=== PATIENT | female | born 1955 | race Caucasian/White ===

== ENCOUNTER → 2016-07-30 | Outpatient (CLI) | payer BC ==
[2016-07-30 14:12] LABS: Basophils # (A) 0.1 k/uL (0-0.2); Basophils % (A) 1 %; CH 32.6; Eosinophils # (A) 0.1 k/uL (0-0.7); Eosinophils % (A) 2 %; HCT 47.3 % (34.0-46.0); HDW 2.21; HGB 15.5 gm/dL (11.4-16.0); Luc # (Auto) 0.29; Luc % (Auto) 4; Lymphocytes # (A) 1.8 k/uL (1.0-4.8); Lymphocytes % (A) 24 %; MCH 32.6 pg (25.0-35.0); MCHC 32.8 g/dL (31.0-37.0); MCV 99.3 fL (80.0-100.0); Mean Platelet Volume 7.8; Monocytes # (A) 0.6 k/uL (0-1.0); Monocytes % (A) 8 %; Neutrophils # (A) 4.7 k/uL (1.3-7.7); Neutrophils % (A) 62 %; RBC 4.76 m/uL (3.80-5.40); RDW 13.1 % (11.5-15.5); WBC 7.5 k/uL (3.8-10.6); WBC (Perox) 7.89
[2016-07-30 14:21] LABS: ALT 34 U/L (9-52); AST 24 U/L (14-36); Alkaline Phosphatase 88 U/L (38-126); Anion Gap 12 mmol/L; Blood Urea Nitrogen 11 mg/dL (7-17); Calcium 9.7 mg/dL (8.4-10.2); Carbon Dioxide 27 mmol/L (22-30); Chloride 99 mmol/L (98-107); Glucose 101 mg/dL (74-99); Non-African American GFR(MDRD) >60 (>60 ml/min/1.73 sqM); Potassium 4.5 mmol/L (3.5-5.1); Sodium 138 mmol/L (137-145); Total Bilirubin 0.9 mg/dL (0.2-1.3); Total Protein 7.6 g/dL (6.3-8.2)
[2016-07-30 14:39] LABS: Creatine Kinase MB 1.5 ng/mL (0.0-2.4); Troponin I <0.012 ng/mL (0.000-0.034)
== END ==
LOC: LABWHC1 13:48
PROVIDERS: ATTEND Nurse Practitioner Adult Health
DX: R07.9 Chest pain, unspecified (principal)
CPT/HCPCS: 36415; 80053; 82553; 84484; 85025

== ENCOUNTER 2018-05-03 16:51 | Observation (INO) | payer BC ==
[2018-05-03 17:26] LABS: Basophils % (A) 0 %; Eosinophils # (A) 0.2 k/uL (0-0.7); Eosinophils % (A) 3 %; HGB 15.4 gm/dL (11.4-16.0); Lymphocytes # (A) 1.8 k/uL (1.0-4.8); Lymphocytes % (A) 26 %; MCH 32.3 pg (25.0-35.0); MCHC 32.7 g/dL (31.0-37.0); MCV 98.8 fL (80.0-100.0); Mean Platelet Volume 6.9; Monocytes # (A) 0.4 k/uL (0-1.0); Monocytes % (A) 6 %; Neutrophils # (A) 4.4 k/uL (1.3-7.7); Neutrophils % (A) 62 %; Platelet Count 253 k/uL (150-450); RBC 4.75 m/uL (3.80-5.40); RDW 13.4 % (11.5-15.5)
[2018-05-03 17:35] LABS: Creatine Kinase 62 U/L (30-135)
[2018-05-03 17:37] LABS: ALT 39 U/L (9-52); AST 35 U/L (14-36); Alkaline Phosphatase 59 U/L (38-126); Anion Gap 10 mmol/L; Blood Urea Nitrogen 17 mg/dL (7-17); Calcium 9.4 mg/dL (8.4-10.2); Carbon Dioxide 23 mmol/L (22-30); Chloride 103 mmol/L (98-107); Glucose 97 mg/dL (74-99); Magnesium 1.9 mg/dL (1.6-2.3); Sodium 136 mmol/L (137-145); Total Bilirubin 0.7 mg/dL (0.2-1.3); Total Protein 7.3 g/dL (6.3-8.2)
[2018-05-03 17:38] LABS: INR 0.9 (<1.2); Partial Thromboplastin Time 23.9 sec (22.0-30.0); Potassium 4.7 mmol/L (3.5-5.1); Prothrombin Time 9.5 sec (9.0-12.0)
[2018-05-03] MEDS ORDERED: ASPIRIN 81 MG PO STA (17:42)
[2018-05-03] MEDS ORDERED: NITROGLYCERIN SL TABS 0.4 MG TAB SUBLINGUAL PRN ×2 (17:42→18:55)
[2018-05-03 17:48] LABS: Creatine Kinase MB 0.7 ng/mL (0.0-2.4); Troponin I <0.012 ng/mL (0.000-0.034)
--- NOTE | 2018-05-03 17:56 | ED ---
General Adult HPI - General Chief complaint: Chest Pain Stated complaint: Chest Pain x4 days Time Seen by Provider: 05/03/18 17:33 Source: patient, RN notes reviewed Mode of arrival: ambulatory Limitations: no limitations - History of Present Illness Initial comments: Patient is 62-year-old female presented to the emergency room today with chief complaint of chest pain that started 3 days ago. Patient does admit that she was expressing some sharp pain left side chest wall. She states that she went to bed and woke up with some indigestion in the middle. She states that she did take Maalox and Tums which helped with the indigestion feelings. She states over the last today she's had more of a aching type pain left side of her chest. She states it's constant at this time. Admits that she's had some increased indigestion as well. She also admits to feeling short of breath. She states this is more with exertion. She is comfortable at rest. Denies any other complaints or symptoms at this time. Patient denies any recent fever, chills, back pain, abdominal pain, nausea or vomiting, numbness or tingling, dysuria or hematuria, constipation or diarrhea, headaches or visual changes, or any other complaints. - Related Data Home Medications Medication Instructions Recorded Confirmed Alendronate Sodium [Fosamax] 70 mg PO WE 05/03/18 05/03/18 Mylanta 30 ml PO ONCE PRN 05/03/18 05/03/18 Allergies Allergy/AdvReac Type Severity Reaction Status Date / Time Sulfa (Sulfonamide Allergy Rash/Hives Verified 05/03/18 17:44 Antibiotics) atorvastatin [From Lipitor] AdvReac MUSCLE PAIN Verified 05/03/18 17:44 Review of Systems ROS Statement: Those systems with pertinent positive or pertinent negative responses have been documented in the HPI. ROS Other: All systems not noted in ROS Statement are negative. Past Medical History Additional Past Medical History / Comment(s): polymyositis, osteopenia History of Any Multi-Drug Resistant Organisms: None Reported Past Surgical History: Orthopedic Surgery Additional Past Surgical History / Comment(s): B wrists Past Psychological History: No Psychological Hx Reported Smoking Status: Never smoker Past Alcohol Use History: Occasional Past Drug Use History: None Reported General Exam - General Exam Comments Initial Comments: General: The patient is awake and alert, in no distress, and does not appear acutely ill. Eye: There is normal conjunctiva bilaterally. No signs of icterus. Ears, nose, mouth and throat: There are moist mucous membranes and no oral lesions. Neck: The neck is supple, there is no tenderness or JVD. Cardiovascular: There is a regular rate and rhythm. No murmur, rub or gallop is appreciated. Respiratory: Lungs are clear to auscultation, respirations are non-labored, breath sounds are equal. No wheezes, stridor, rales, or rhonchi. Gastrointestinal: Soft, non-distended, non-tender abdomen without masses or organomegaly noted. There is no rebound or guarding present. No CVA tenderness. Musculoskeletal: Normal ROM, no tenderness. Strength 5/5. Sensation intact. Pulses equal bilaterally 2+. Neurological: A&O x 3. CN II-XII intact, There are no obvious motor or sensory deficits. Coordination appears grossly intact. Speech is normal. Skin: Skin is warm and dry and no rashes or lesions are noted. Psychiatric: Cooperative, appropriate mood & affect, normal judgment. Limitations: no limitations Course Vital Signs 05/03/18 16:57 Temperature 98.2 F Pulse Rate 104 H Respiratory 18 Rate Blood Pressure 193/109 O2 Sat by Pulse 96 Oximetry EKG Findings - EKG Comments: EKG Findings:: EKG performed at 1709: Shows sinus rhythm at 91 bpm. Occasional PVC. LA interval 152. QRS 74. QT/QTC 364/447. No acute ST changes. No old EKG to compare. Medical Decision Making - Medical Decision Making patient reexamined she shows no signs of distress is resting comfortable. Currently rates her pain as 2/10. Patient currently enzymes are negative. D- dimer negative. EKG shows no acute ST changes. Patient will be admitted for serial cardiac enzymes and consult cardiology. - Lab Data Result diagrams: 05/03/18 17:10 05/03/18 17:10 Lab Results 05/03/18 05/03/18 05/03/18 Range/Units 17:10 17:10 17:10 WBC 7.0 (3.8-10.6) k/uL RBC 4.75 (3.80-5.40) m/uL Hgb 15.4 (11.4-16.0) gm/dL Hct 47.0 H (34.0-46.0) % MCV 98.8 (80.0-100.0) fL MCH 32.3 (25.0-35.0) pg MCHC 32.7 (31.0-37.0) g/dL RDW 13.4 (11.5-15.5) % Plt Count 253 (150-450) k/uL Neutrophils % 62 % Lymphocytes % 26 % Monocytes % 6 % Eosinophils % 3 % Basophils % 0 % Neutrophils # 4.4 (1.3-7.7) k/uL Lymphocytes # 1.8 (1.0-4.8) k/uL Monocytes # 0.4 (0-1.0) k/uL Eosinophils # 0.2 (0-0.7) k/uL Basophils # 0.0 (0-0.2) k/uL PT (9.0-12.0) sec INR (<1.2) APTT (22.0-30.0) sec D-Dimer (<0.60) mg/L FEU Sodium 136 L (137-145) mmol/L Potassium 4.7 (3.5-5.1) mmol/L Chloride 103 (98-107) mmol/L Carbon Dioxide 23 (22-30) mmol/L Anion Gap 10 mmol/L BUN 17 (7-17) mg/dL Creatinine 0.67 (0.52-1.04) mg/dL Est GFR (CKD-EPI)AfAm >90 (>60 ml/min/1.73 sqM) Est GFR (CKD-EPI)NonAf >90 (>60 ml/min/1.73 sqM) Glucose 97 (74-99) mg/dL Calcium 9.4 (8.4-10.2) mg/dL Magnesium 1.9 (1.6-2.3) mg/dL Total Bilirubin 0.7 (0.2-1.3) mg/dL AST 35 (14-36) U/L ALT 39 (9-52) U/L Alkaline Phosphatase 59 (38-126) U/L Total Creatine Kinase 62 (30-135) U/L CK-MB (CK-2) 0.7 (0.0-2.4) ng/mL CK-MB (CK-2) Rel Index 1.1 Troponin I <0.012 (0.000-0.034) ng/mL Total Protein 7.3 (6.3-8.2) g/dL Albumin 4.0 (3.5-5.0) g/dL 05/03/18 05/03/18 Range/Units 17:10 17:10 WBC (3.8-10.6) k/uL RBC (3.80-5.40) m/uL Hgb (11.4-16.0) gm/dL Hct (34.0-46.0) % MCV (80.0-100.0) fL MCH (25.0-35.0) pg MCHC (31.0-37.0) g/dL RDW (11.5-15.5) % Plt Count (150-450) k/uL Neutrophils % % Lymphocytes % % Monocytes % % Eosinophils % % Basophils % % Neutrophils # (1.3-7.7) k/uL Lymphocytes # (1.0-4.8) k/uL Monocytes # (0-1.0) k/uL Eosinophils # (0-0.7) k/uL Basophils # (0-0.2) k/uL PT 9.5 (9.0-12.0) sec INR 0.9 (<1.2) APTT 23.9 (22.0-30.0) sec D-Dimer 0.38 (<0.60) mg/L FEU Sodium (137-145) mmol/L Potassium (3.5-5.1) mmol/L Chloride (98-107) mmol/L Carbon Dioxide (22-30) mmol/L Anion Gap mmol/L BUN (7-17) mg/dL Creatinine (0.52-1.04) mg/dL Est GFR (CKD-EPI)AfAm (>60 ml/min/1.73 sqM) Est GFR (CKD-EPI)NonAf (>60 ml/min/1.73 sqM) Glucose (74-99) mg/dL Calcium (8.4-10.2) mg/dL Magnesium (1.6-2.3) mg/dL Total Bilirubin (0.2-1.3) mg/dL AST (14-36) U/L ALT (9-52) U/L Alkaline Phosphatase (38-126) U/L Total Creatine Kinase (30-135) U/L CK-MB (CK-2) (0.0-2.4) ng/mL CK-MB (CK-2) Rel Index Troponin I (0.000-0.034) ng/mL Total Protein (6.3-8.2) g/dL Albumin (3.5-5.0) g/dL Disposition Clinical Impression: Chest pain Disposition: ADMITTED IP TO THIS HOSP Condition: Good Instructions: Chest Pain (ED) Is patient prescribed a controlled substance at d/c from ED?: No Referrals: Elva Bernard MD [Primary Care Provider] - 1-2 days Time of Disposition: 18:55
--- NOTE | 2018-05-03 18:33 | XR ---
EXAMINATION TYPE: XR chest 2V DATE OF EXAM: 05/03/2018 COMPARISON: NONE HISTORY: Chest pain TECHNIQUE: Frontal and lateral views of the chest are obtained. FINDINGS: Heart and mediastinum are normal. Lungs are clear. Diaphragm is normal. Bony thorax appear s normal. IMPRESSION: Normal chest.
[2018-05-03] MEDS ORDERED: SODIUM CHLORIDE 0.9% 1,000 ML IV ONE (18:55)
[2018-05-03] MEDS ORDERED: LABETALOL SYRINGE 5 MG/ML IVP STA (19:08)
[2018-05-03] MEDS ORDERED: HEPARIN SODIUM,PORCINE 5,000 UNIT/ML 1 ML VIAL IV ONE (19:34)
[2018-05-03] MEDS ORDERED: HEPARIN SOD,PORK IN 0.45% NACL 25,000 UNIT in 0.45% NACL 1 250ML.BAG IV SCH (19:45)
[2018-05-03] MEDS ORDERED: MYLANTA PO PRN (22:15)
[2018-05-03 22:24] VITALS: BMI 32.9
[2018-05-03 23:50] LABS: Creatine Kinase 49 U/L (30-135)
[2018-05-04 00:03] LABS: Creatine Kinase MB 0.6 ng/mL (0.0-2.4); Troponin I <0.012 ng/mL (0.000-0.034)
[2018-05-04 00:09] VITALS: RESP 16
[2018-05-04] MEDS ORDERED: ACETAMINOPHEN TAB 500 MG TAB PO PRN (00:25)
[2018-05-04] MEDS ORDERED: ALPRAZolam 0.25 MG TAB PO PRN (00:25)
[2018-05-04] MEDS ORDERED: TEMAZEPAM 15 MG CAP PO PRN (00:25)
--- NOTE | 2018-05-04 06:12 | HP ---
HISTORY AND PHYSICAL DATE OF SERVICE: 05/03/2018 CHIEF COMPLAINT: Chest pain. HISTORY OF PRESENT ILLNESS: This 62-year-old woman with a past medical history of multiple medical problems including history of polymyositis, osteopenia, history of DJD being followed by Dr. Elva Bernard in the outpatient setting was complaining of chest pain. The pain was felt about 3 days ago which was sharp character on the left side, but today it is more of persistent pain and the patient did not get relief from taking Maalox and patient came to [facility] and admitted for further evaluation. Pain is also radiating to the left shoulder. The troponins are negative so far. The chest x-ray showed no acute abnormality. There is no history of fever or rigors. No history of headache, loss of consciousness, seizures. The mother had CABG and patient had stress test [place] [address] Gold. PAST MEDICAL HISTORY: Polymyositis, osteopenia. MEDICATIONS: Home medications are: 1. Mylanta 30 mL p.r.n. 2. Fosamax 70 mg Tuesday. ALLERGIES: SULFA, LIPITOR. FAMILY HISTORY: History of myocardial function, valve replacement. SOCIAL HISTORY: No history of smoking. No history of alcohol intake. 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 REVIEW OF SYSTEMS: ENT: No diminished hearing or diminished vision. CARDIOVASCULAR SYSTEM: As mentioned earlier. RESPIRATORY SYSTEM: As mentioned earlier. GI: No nausea. : No dysuria. NERVOUS SYSTEM: No numbness or weakness. ALLERGY/IMMUNOLOGY: No history of asthma. MUSCULOSKELETAL: As mentioned earlier. HEMATOLOGY/ONCOLOGY: No history of anemia. ENDOCRINE: No history of diabetes. CONSTITUTIONAL: As mentioned earlier. DERMATOLOGY: Negative. RHEUMATOLOGY: Negative. PSYCHIATRY: As mentioned earlier. PHYSICAL EXAM: Patient is alert and oriented x3. Pulse is 87, blood pressure 174/79, respiration 18, temperature is 97.8, pulse ox 98% on room air. HEENT: Conjunctivae normal. NECK: No jugular venous distention. CARDIOVASCULAR: S1, S2, muffled. RESPIRATORY: Breath sounds diminished at the bases. No rhonchi, no crackles. ABDOMEN: Soft, nontender. No mass palpable. LEGS: No edema, no swelling. NERVOUS SYSTEM: Higher function as mentioned earlier. Moves all 4 limbs. No focal deficits. LYMPHATICS: No lymphadenopathy of the neck, axillae or groin. SKIN: No ulcer, rash or bleeding. LABS: CBC within normal limits. Sodium 136. ASSESSMENT: 1. Chest pain, possible unstable angina, possibly musculoskeletal. 2. Hyponatremia, mild. 3. History of polymyositis. 4. History of osteopenia. 5. History of degenerative joint disease. RECOMMENDATIONS AND DISCUSSION: In this 62-year-old woman who presented with multiple medical problems, will monitor the patient closely. Continue the current medications, continue symptomatic treatment. Continue the antiplatelet and unstable angina protocol. Cardiology consult, rule out myocardial infarction. Prognosis guarded because of the multiple complex medical issues. Further recommendations to follow. A copy of dictation forwarded to Dr. Elva Bernard who is the primary physician. We will also check a lipid panel also. MMODL / IJN: [id number] /
[2018-05-04 06:21] LABS: Cholesterol 219 mg/dL (<200); HDL Cholesterol 53 mg/dL (40-60); LDL Cholesterol,Calculated 139 mg/dL (0-99); Triglycerides 133 mg/dL (<150)
[2018-05-04 06:38] LABS: Creatine Kinase 51 U/L (30-135)
[2018-05-04 06:51] LABS: Creatine Kinase MB 0.6 ng/mL (0.0-2.4); Troponin I <0.012 ng/mL (0.000-0.034)
[2018-05-04 07:00] LABS: Appearance,Urine Clear (Clear); Bilirubin,Urine Negative (Negative); Blood,Urine Negative (Negative); Color,Urine Yellow; Glucose,Urine (UA) Negative (Negative); Ketones,Urine Negative (Negative); Leukocyte Esterase,Urine Moderate (Negative); Mucus,Urine Occasional /hpf; Nitrite,Urine Negative (Negative); Protein,Urine Negative (Negative); RBC,Urine 2 /hpf (0-5); Specific Gravity,Urine 1.023 (1.001-1.035); Squamous Epithelial Cell,Urine 2 /hpf (0-4); Urobilinogen,Urine <2.0 mg/dL (<2.0); WBC,Urine 24 /hpf (0-5)
[2018-05-04] MEDS ORDERED: PANTOPRAZOLE 40 MG TABLET PO SCH (07:30)
[2018-05-04] MEDS ORDERED: ASPIRIN 325 MG TAB PO SCH (09:00)
[2018-05-04] MEDS ORDERED: LOSARTAN 25 MG TAB PO SCH (10:45)
--- NOTE | 2018-05-04 10:46 | P.CRDCN ---
History of Present Illness History of present illness: This is a pleasant 62-year-old female past medical history significant for dyslipidemia. She denies history of coronary artery disease, hypertension or diabetes mellitus. She states her father had a valve replacement surgery her mother had bypass surgery and her sister who is eager intermittent in her recently had a myocardial infarction. She has seen Dr. Gold in the past and undergone stress testing just due to her family history many years which was normal per the patient. No office records were found. We have been asked to see her in consultation for symptoms of chest discomfort. She states she has been feeling a vague jabbing sensation in the left precordial region that started over the weekend. Then she woke up Tuesday morning with an intense feeling of heart burn in the mid-sternal region. She took Mylanta and her burning initially went away, however the symptoms returned throughout the day while she was working. Then yesterday she felt what she describes as an ache in the left precordial region for most of the day while at rest. The discomfort radiated to her left shoulder, down her left arm and into the left neck. She denies shortness of breath, dizziness or palpitations. Currently chest pain free. No specific aggravating or alleviating factors. Blood pressure on arrival to ED was 193/107 for which she was given IV labetolol. She denies hypertension in the past. EKG reveals sinus mechanism. Chest x-ray is negative for an acute cardiopulmonary process. Laboratory data reviewed, cardiac enzymes negative 3, LDL 139, HDL 53, WBC 7, hemoglobin 15.4, platelets 253, d-dimer 0.3, sodium 136, potassium 4.7, magnesium 1.9, creatinine 0.67. She takes no daily cardiac medications. At the time of my exam: CONSTITUTIONAL: Denies fever. Denies chills. EYES: Denies blurred vision. Denies vision changes. Denies eye pain. EARS, NOSE, MOUTH & THROAT: Denies headache. Denies sore throat. Denies ear pain. CARDIOVASCULAR: Denies chest pain. Denies shortness of breath. Denies orthopnea. Denies PND. Denies palpitations. RESPIRATORY: Denies cough. GASTROINTESTINAL: Denies abdominal pain. Denies diarrhea. Denies constipation. Denies nausea. Denies vomiting. MUSCULOSKELETAL: Denies myalgias. INTEGUMENTARY: Denies pruitis. Denies rash. NEUROLOGIC: Denies numbness. Denies tingling. Denies weakness. PSYCHIATRIC: Denies anxiety. Denies depression. ENDOCRINE: Denies fatigue. Denies weight change. Denies polydipsia. Denies polyurina. GENITOURINARY: Denies burning, hematuria or urgency with micturation. HEMATOLOGIC: Denies history of anemia. Denies bleeding. Blood pressure 147/84 heart rate 85 afebrile maintaining oxygen saturation on room air GENERAL: This is a 62-year-old female in no apparent distress at the time of my examination. HEENT: Head is atraumatic, normocephalic. Pupils are equal, round. Sclerae anicteric. Conjunctivae are clear. Mucous membranes of the mouth are moist. Neck is supple. There is no jugular venous distention. No carotid bruit is heard. LUNGS: Clear to auscultation no wheezes, rales or rhonchi. No chest wall tenderness is noted on palpation or with deep breathing. HEART: Regular rate and rhythm without murmurs, rubs or gallops. S1 and S2 heard. ABDOMEN: Soft, nontender. Bowel sounds are heard. No organomegaly noted. EXTREMITIES: No evidence of peripheral edema and no calf tenderness noted. VASCULAR: Radial and dorsalis pedis pulses palpated, no evidence of clubbing. NEUROLOGIC: Patient is awake, alert and oriented x3. ASSESSMENT Chest pain, atypical. An acute coronary event has been ruled out with no EKG evidence of ischemia and negative cardiac enzymes. Hypertension, new onset Dyslipidemia, has attempted atorvastatin the past but caused muscle aches so she stopped taking it. Obesity, BMI 32 Significant family history of premature coronary artery disease with father, mother and sister. PLAN An acute coronary event has been ruled out. Obtain 2-D echocardiogram and Doppler study to assess cardiac structure and function. Perform stress echocardiogram to assess for stress-induced cardiac ischemia. Patient is agreeable to try rosuvastatin 20 mg daily. With the understanding that if it causes similar muscle aches that she can discuss other options with Dr. Kaplan as an outpatient. Initiate on losartan 12.5 mg daily. If stress test is normal she is stable from a cardiac perspective. Lifestyle modifications recommended for weight loss and exercise. Thank you kindly for this consultation. Nurse Practitioner note has been reviewed, I agree with a documented findings and plan of care. Patient was seen and examined. Past Medical History Additional Past Medical History / Comment(s): polymyositis, osteopenia History of Any Multi-Drug Resistant Organisms: None Reported Past Surgical History: Orthopedic Surgery Additional Past Surgical History / Comment(s): BL wrists Past Anesthesia/Blood Transfusion Reactions: No Reported Reaction Past Psychological History: No Psychological Hx Reported Smoking Status: Never smoker Past Alcohol Use History: Occasional Past Drug Use History: None Reported - Past Family History Father Additional Family Medical History / Comment(s): Valve replacement Mother Additional Family Medical History / Comment(s): Triple bypass Sister(s) Family Medical History: Myocardial Infarction ([place]) Additional Family Medical History / Comment(s): [place] caused by spasms Medications and Allergies Home Medications Medication Instructions Recorded Confirmed Type Alendronate Sodium [Fosamax] 70 mg PO WE 05/03/18 05/03/18 History Mylanta 30 ml PO ONCE PRN 05/03/18 05/03/18 History Allergies Allergy/AdvReac Type Severity Reaction Status Date / Time Sulfa (Sulfonamide Allergy Rash/Hives Verified 05/03/18 17:44 Antibiotics) atorvastatin [From Lipitor] AdvReac MUSCLE PAIN Verified 05/03/18 17:44 Physical Exam Vitals: Vital Signs Temp Pulse Pulse Resp BP BP Pulse Ox 05/04/18 04:00 97.7 F 90 16 147/91 98 05/04/18 00:00 98.3 F 96 16 123/63 96 05/03/18 22:19 97.8 F 87 18 174/79 98 05/03/18 22:10 96 16 05/03/18 21:28 88 18 155/76 95 05/03/18 19:48 84 18 167/88 97 05/03/18 19:07 96 18 170/107 94 L 05/03/18 18:59 103 H 18 192/100 100 05/03/18 16:57 98.2 F 104 H 18 193/109 96 Intake and Output 05/03/18 05/04/18 05/04/18 22:59 06:59 14:59 Intake Total 76.688 Balance 76.688 Intake: Intake, IV Titration 76.688 Amount Heparin Sod,Pork in 0.45% 76.688 NaCl 25,000 unit In 0.45 % NaCl 1 250ml.bag @ 12 UNITS/KG/HR 9.79 mls/hr IV .Q24H [facility] Rx#: [id number] Other: # Voids 2 Weight 81.647 kg 81.647 kg Results 05/03/18 17:10 05/03/18 17:10 Cardiac Enzymes 05/03/18 05/03/18 05/03/18 Range/Units 17:10 17:10 23:11 AST 35 (14-36) U/L CK-MB (CK-2) 0.7 0.6 (0.0-2.4) ng/mL Troponin I <0.012 <0.012 (0.000-0.034) ng/mL 05/04/18 Range/Units 05:27 AST (14-36) U/L CK-MB (CK-2) 0.6 (0.0-2.4) ng/mL Troponin I <0.012 (0.000-0.034) ng/mL Coagulation 05/03/18 05/04/18 Range/Units 17:10 02:31 PT 9.5 (9.0-12.0) sec APTT 23.9 43.7 H (22.0-30.0) sec Lipids 05/04/18 Range/Units 05:27 Triglycerides 133 (<150) mg/dL Cholesterol 219 H (<200) mg/dL HDL Cholesterol 53 (40-60) mg/dL CBC 05/03/18 Range/Units 17:10 WBC 7.0 (3.8-10.6) k/uL RBC 4.75 (3.80-5.40) m/uL Hgb 15.4 (11.4-16.0) gm/dL Hct 47.0 H (34.0-46.0) % Plt Count 253 (150-450) k/uL Comprehensive Metabolic Panel 05/03/18 Range/Units 17:10 Sodium 136 L (137-145) mmol/L Potassium 4.7 (3.5-5.1) mmol/L Chloride 103 (98-107) mmol/L Carbon Dioxide 23 (22-30) mmol/L BUN 17 (7-17) mg/dL Creatinine 0.67 (0.52-1.04) mg/dL Glucose 97 (74-99) mg/dL Calcium 9.4 (8.4-10.2) mg/dL AST 35 (14-36) U/L ALT 39 (9-52) U/L Alkaline Phosphatase 59 (38-126) U/L Total Protein 7.3 (6.3-8.2) g/dL Albumin 4.0 (3.5-5.0) g/dL Current Medications Generic Name Dose Route Start Last Admin Trade Name Freq PRN Reason Stop Dose Admin Acetaminophen 500 mg 05/04/18 00:25 05/04/18 01:09 Tylenol Tab PO 500 mg Q6HR PRN Administration Fever and/ or Pain Alprazolam 0.25 mg 05/04/18 00:25 Xanax PO TID PRN Anxiety Aspirin 325 mg 05/04/18 09:00 Aspirin PO DAILY TORSTEN Sodium Chloride 1,000 mls @ 75 mls/hr 05/03/18 18:55 05/03/18 23:07 Saline 0.9% IV 05/04/18 08:14 75 mls/hr .[id number] ONE Administration Heparin Sodium/Sodium Chloride 250 mls @ 9.79 mls/hr 05/03/18 19:45 05/04/18 04:08 25,000 unit/ Sodium Chloride IV 14 units/kg/hr .Q24H TORSTEN 11.43 mls/hr Titration Protocol 12 UNITS/KG/HR Nitroglycerin 0.4 mg 05/03/18 17:42 05/03/18 19:00 Nitrostat SUBLINGUAL 0.4 mg Q10M PRN Administration Chest Pain Nitroglycerin 0.4 mg 05/03/18 18:55 Nitrostat SUBLINGUAL Q5M PRN Chest Pain Mylanta 30 Ml 30 ml 05/03/18 22:15 PO ONCE PRN Heartburn Pantoprazole Sodium 40 mg 05/04/18 07:30 Protonix PO AC-BRKFST TORSTEN Temazepam 15 mg 05/04/18 00:25 Restoril PO HS PRN Insomnia Intake and Output 05/03/18 05/04/18 05/04/18 22:59 06:59 14:59 Intake Total 76.688 Balance 76.688 Intake: Intake, IV Titration 76.688 Amount Heparin Sod,Pork in 0.45% 76.688 NaCl 25,000 unit In 0.45 % NaCl 1 250ml.bag @ 12 UNITS/KG/HR 9.79 mls/hr IV .Q24H [facility] Rx#: [id number] Other: # Voids 2 Weight 81.647 kg 81.647 kg 05/03/18 17:10 05/03/18 17:10
[2018-05-04 12:15] VITALS: BP 142/82; PULSE 96; TEMP 97.7
--- NOTE | 2018-05-04 14:11 | ECHOF ---
Referral Reason:cp MEASUREMENTS -------- HEIGHT: 157.5 cm WEIGHT: 81.6 kg BP: 147/91 RVIDd: 2.6 cm (< 3.3) IVSd: 1.5 cm (0.6 - 1.1) LVIDd: 2.8 cm (3.9 - 5.3) LVPWd: 1.6 cm (0.6 - 1.1) IVSs: 1.9 cm LVIDs: 1.4 cm LVPWs: 2.0 cm Ao Diam: 2.6 cm (2.0 - 3.7) AV Cusp: 1.8 cm (1.5 - 2.6) LA Diam: 3.7 cm (2.7 - 3.8) MV E Gage: 1.17 m/s MV DecT: 181 ms MV A Gage: 1.18 m/s MV E/A Ratio: 1.00 RAP: 5.00 mmHg RVSP: 16.77 mmHg FINDINGS -------- Sinus rhythm. This was a technically difficult study with suboptimal views. The left ventricular size is normal. There is moderate concentric left ventricular hypertrophy. O verall left ventricular systolic function is normal with, an EF between 55 - 60 %. The right ventricle is normal in size and function. The left atrial size is normal. The right atrium is normal in size. Lumason used The aortic valve is trileaflet, and appears structurally normal. No aortic stenosis or regurgitation. The mitral valve leaflets are mildly thickened. Mild mitral regurgitation is present. Mild tricuspid regurgitation present. The right ventricular systolic pressure, as measured by Doppl er, is 16.77mmHg. Pulmonic valve appears structurally normal. The aortic root size is normal. IVC Not well visulized. The pericardium is normal. CONCLUSIONS -------- 1. Sinus rhythm. 2. This was a technically difficult study with suboptimal views. 3. The left ventricular size is normal. 4. There is moderate concentric left ventricular hypertrophy. 5. Overall left ventricular systolic function is normal with, an EF between 55 - 60 %. 6. The right ventricle is normal in size and function. 7. The left atrial size is normal. 8. The right atrium is normal in size. 9. Lumason used 10. The aortic valve is trileaflet, and appears structurally normal. No aortic stenosis or regurgitat ion. 11. The mitral valve leaflets are mildly thickened. 12. Mild mitral regurgitation is present. 13. Mild tricuspid regurgitation present. 14. The right ventricular systolic pressure, as measured by Doppler, is 16.77mmHg. 15. Pulmonic valve appears structurally normal. 16. The aortic root size is normal. 17. IVC Not well visulized. 18. The pericardium is normal. TRANSMITTER ENGINEER: Marta Watson RDCS
--- NOTE | 2018-05-05 07:17 | DS ---
DISCHARGE SUMMARY DATE OF SERVICE: 05/04/2018 FINAL DIAGNOSES: 1. Chest pain, myocardial infarction ruled out. 2. Musculoskeletal pain. 3. Hyponatremia, mild. 4. History of polymyositis. 5. History osteoporosis. 6. History of degenerative joint disease. DISCHARGE DISPOSITION: The patient will be discharged in a stable condition with guarded prognosis. HISTORY OF PRESENT ILLNESS: This is a 62-year-old woman with a past medical history of multiple medical problems, admitted with chest pain, myocardial infarction ruled out. Cardiology saw the patient and recommended outpatient followup. A 2D echo with Doppler was done which showed ejection fraction of 50%-60%. The patient follows with Dr. Elva Bernard in the outpatient setting. On exam, vitals are stable. CARDIOVASCULAR SYSTEM: S1, S2. ABDOMEN: Soft. NERVOUS SYSTEM: No focal deficits. The patient had a UTI from the labs and the patient also had cholesterol elevated up to 219. A stress test was done and the patient will be discharged home with stress is negative. Official reports are not available at this time. DISCHARGE ADVICE AND MEDICATIONS: Diet is cardiac diet. Activity limited until followup. Follow up with Dr. Elva Bernard in 2-3 days. Follow up with Dr. Kaplan in 2 weeks. Medications to be as mentioned earlier. 1. Fosamax 70 mg Tuesday. 2. Mylanta 30 mg one p.r.n. 3. Ceftin 500 mg b.i.d. for 3 days. 4. Cozaar 12.5 mg daily. Cardiology recommended Crestor 20 mg daily. Patient will check diet and then decide on that. The lipid panel should be closely followed in the outpatient setting. As mentioned, her cholesterol is 219 and LDL is 139. MMODL / IJN: [id number] /
--- NOTE | 2018-05-05 10:35 | ECHOS ---
STRESS ECHOCARDIOGRAM INDICATIONS: Chest pain. MEDICATIONS: Fosamax. BASELINE HEART RATE: 91 BASELINE BLOOD PRESSURE: 127/57 MAXIMUM HEART RATE: 153 MAXIMUM BLOOD PRESSURE: 146/71 85% MPHR: 135 100% MPHR: 159 METS: 7.1 MAXIMUM STAGE REACHED: 3 TOTAL EXERCISE TIME: 6:15 CLINICAL INFORMATION: Patient was exercised for a total period of 6 minutes, peak heart rate of 153 was achieved. Maximum blood pressure of 146/71 mmHg was noted. Resting EKG shows normal sinus rhythm with normal NM interval and QRS duration and normal ST-T waves. No ST- segment depression suggestive of ischemia was noted. Patient did not complain of any chest pain during the test. The baseline echocardiographic images reveal normal left ventricular chamber size with normal left ventricular systolic function. In the immediate postexercise period, normal increase in the wall thickness and contractility was noted. FINAL IMPRESSION: 1. This stress echocardiographic study is negative for stress-induced ischemia. 2. EKG portion of the stress test is not suggestive of ischemia. MMODL / IJN: [id number] /
--- NOTE | 2018-05-12 06:01 | CDI ---
Date: 05/12/18 CDS/Machine Stone Polisher Name: Bety Smith Phone: If any questions, call Kaylah Case Call Worker at [phone] Patient Name: Faustina Bates Admit Date: 05/03/18 Discharge Date: 05/04/18 ATTENTION: The [facility] Coding Staff appreciate your assistance in clarifying documentation. Please respond to the clarification below the line at the bottom and electronically sign. The [facility] Coding staff will review the response and follow-up if needed. Please note: Queries are made part of the Legal Health Record. If you have any questions, please contact the Call Worker. Dear Dr. Richard, Please provide clarification for the diagnosis of "History of Osteoporosis". All other documentation indicates Osteopenia. Please clarify. Thank you for your kind consideration. Osteopenia MTDD
== END 2018-05-04 15:19 | disposition home or self-care (01) ==
LOC: EC 16:51 → 1SOBS 18:39
PROVIDERS: ADMIT Internal Medicine; ATTEND Internal Medicine
DX: R07.2 Precordial pain (principal); R07.89 Other chest pain; R12 Heartburn; E87.1 Hypo-osmolality and hyponatremia; I10 Essential (primary) hypertension; R06.02 Shortness of breath; M79.18 Myalgia, other site; N39.0 Urinary tract infection, site not specified; M33.20 Polymyositis, organ involvement unspecified; M81.0 Age-related osteoporosis without current pathological fracture; M19.90 Unspecified osteoarthritis, unspecified site; M85.80 Other specified disorders of bone density and structure, unspecified site; E78.5 Hyperlipidemia, unspecified; Z82.49 Family history of ischemic heart disease and other diseases of the circulatory system; E66.9 Obesity, unspecified; Z68.32 Body mass index [BMI] 32.0-32.9, adult; Z88.2 Allergy status to sulfonamides; Z88.8 Allergy status to other drugs, medicaments and biological substances; Z79.83 Long term (current) use of bisphosphonates; Z79.899 Other long term (current) drug therapy
CPT/HCPCS: 96366 ×3; 96367; 96376; 96365; 96375; 99285; 36415; 93005; 93306; 93351; 85379; 80061; 80053; 82550 ×2; 82553 ×2; 83735; 84484 ×2; 85025; 85610; 85730 ×2; 81001; 71046; G0378 ×2; J1644 ×2; J0696; Q9950

== ENCOUNTER 2020-02-24 17:32 | Observation (INO) | payer BC ==
[2020-02-24] MEDS ORDERED: SODIUM CHLORIDE 0.9% 500 ML 500 ML IV ONE (17:56)
--- NOTE | 2020-02-24 17:58 | ED ---
General Adult HPI - General Chief complaint: Chest Pain Stated complaint: Chest pain Time Seen by Provider: 02/24/20 17:38 Source: patient, RN notes reviewed, old records reviewed Mode of arrival: wheelchair Limitations: no limitations - History of Present Illness Initial comments: [id number] presenting for evaluation of chest pain. Patient states that she woke with chest pain this morning, left-sided, nonradiating chest pain. Patient denies sharp stabbing pain. She states that yesterday evening she had an episode of dizziness which resolved without treatment. Prior to arrival she had an episode of nausea and vomiting. She has had intermittent chest pain throughout the day today. No diaphoresis. She has no known history of coronary artery disease. She has a history of hypertension. - Related Data Home Medications Medication Instructions Recorded Confirmed Alendronate Sodium [Fosamax] 70 mg PO WE 05/03/18 02/24/20 Aspirin EC [Ecotrin Low Dose] 81 mg PO HS 02/24/20 02/24/20 Cyanocobalamin (Vitamin B-12) 1,000 mcg PO DAILY 02/24/20 02/24/20 [Vitamin B-12] Metoprolol Succinate (ER) [Toprol 50 mg PO HS 02/24/20 02/24/20 Xl] Multivitamins, Thera Liquid 5 ml PO DAILY 02/24/20 02/24/20 [Theragran Liquid (formulary)] Progesterone, Micronized 200 mg PO HS 02/24/20 02/24/20 [Progesterone] Vitamin C/Zinc Odt Tab 1 tab SL DAILY 02/24/20 02/24/20 acetaZOLAMIDE [Diamox] 250 mg PO DAILY 02/24/20 02/24/20 Allergies Allergy/AdvReac Type Severity Reaction Status Date / Time Sulfa (Sulfonamide Allergy Rash/Hives Verified 02/24/20 18:31 Antibiotics) atorvastatin [From Lipitor] AdvReac MUSCLE PAIN Verified 02/24/20 18:31 Review of Systems ROS Statement: Those systems with pertinent positive or pertinent negative responses have been documented in the HPI. ROS Other: All systems not noted in ROS Statement are negative. Past Medical History Past Medical History: Hypertension Additional Past Medical History / Comment(s): polymyositis, osteopenia History of Any Multi-Drug Resistant Organisms: None Reported Past Surgical History: Orthopedic Surgery Additional Past Surgical History / Comment(s): BL wrists Past Anesthesia/Blood Transfusion Reactions: No Reported Reaction Past Psychological History: No Psychological Hx Reported Smoking Status: Never smoker Past Alcohol Use History: Occasional Past Drug Use History: None Reported - Past Family History Father Additional Family Medical History / Comment(s): Valve replacement Mother Additional Family Medical History / Comment(s): Triple bypass Sister(s) Family Medical History: Myocardial Infarction ([place]) Additional Family Medical History / Comment(s): [place] caused by spasms General Exam Limitations: no limitations General appearance: alert, in no apparent distress Head exam: Present: atraumatic, normocephalic Eye exam: Present: normal appearance, PERRL ENT exam: Present: normal exam Neck exam: Present: normal inspection. Absent: tenderness, meningismus Respiratory exam: Present: normal lung sounds bilaterally. Absent: respiratory distress, wheezes Cardiovascular Exam: Present: regular rate, normal rhythm GI/Abdominal exam: Present: soft. Absent: distended, tenderness, guarding, rebound Extremities exam: Present: normal inspection, normal capillary refill. Absent: pedal edema, calf tenderness Neurological exam: Present: alert, oriented X3, CN II-XII intact. Absent: motor sensory deficit Psychiatric exam: Present: normal affect, normal mood Skin exam: Present: warm, dry, intact. Absent: cyanosis, diaphoretic Course Vital Signs 02/24/20 02/24/20 02/24/20 17:33 17:45 18:31 Temperature 98.3 F Pulse Rate 90 99 Pulse Rate [ 98 Material Chaser ] Respiratory 18 20 Rate Blood Pressure 173/101 159/94 O2 Sat by Pulse 97 96 Oximetry EKG Findings - EKG Comments: EKG Findings:: EKG at 1743, normal sinus rhythm, rate of 86, KY interval 154, QRS duration 72, QTC 442, no ST segment elevation. repeat EKG, 1820 normal sinus rhythm, rate of 96, KY interval 154 QRS duration 72 and a QTC [address] segment elevation. Medical Decision Making - Medical Decision Making 64 year-old female presenting for evaluation of chest pain, nausea. EKG shows sinus rhythm without ST segment elevation. Chest x-rays negative for acute cardio pulmonary disease. Patient was very hypertensive upon arrival given this in the setting of chest pain, CT angiography was performed which is negative for aortic pathology. She has a normal CBC, normal CMP, negative troponin. She'll be kept in observation for serial cardiac enzymes, telemetry, cardiology consultation. Case has been discussed with Dr. Richard who will admit. - Lab Data Result diagrams: 02/24/20 18:03 02/24/20 18:03 Lab Results 02/24/20 02/24/20 02/24/20 Range/Units 18:03 18:03 18:03 WBC 9.8 (3.8-10.6) k/uL RBC 4.98 (3.80-5.40) m/uL Hgb 16.4 H (11.4-16.0) gm/dL Hct 51.1 H (34.0-46.0) % MCV 102.5 H (80.0-100.0) fL MCH 32.8 (25.0-35.0) pg MCHC 32.0 (31.0-37.0) g/dL RDW 13.3 (11.5-15.5) % Plt Count 309 (150-450) k/uL Neutrophils % 71 % Lymphocytes % 23 % Monocytes % 2 % Eosinophils % 2 % Basophils % 1 % Neutrophils # 6.9 (1.3-7.7) k/uL Lymphocytes # 2.2 (1.0-4.8) k/uL Monocytes # 0.2 (0-1.0) k/uL Eosinophils # 0.2 (0-0.7) k/uL Basophils # 0.1 (0-0.2) k/uL Macrocytosis Slight PT 9.5 (9.0-12.0) sec INR 0.9 (<1.2) APTT 22.9 (22.0-30.0) sec D-Dimer 0.35 (<0.60) mg/L FEU Sodium 136 L (137-145) mmol/L Potassium 4.3 (3.5-5.1) mmol/L Chloride 105 (98-107) mmol/L Carbon Dioxide 25 (22-30) mmol/L Anion Gap 6 mmol/L BUN 19 H (7-17) mg/dL Creatinine 0.75 (0.52-1.04) mg/dL Est GFR (CKD-EPI)AfAm >90 (>60 ml/min/1.73 sqM) Est GFR (CKD-EPI)NonAf 85 (>60 ml/min/1.73 sqM) Glucose 105 H (74-99) mg/dL Calcium 9.8 (8.4-10.2) mg/dL Magnesium 1.9 (1.6-2.3) mg/dL Total Bilirubin 0.6 (0.2-1.3) mg/dL AST 29 (14-36) U/L ALT 27 (4-34) U/L Alkaline Phosphatase 67 (38-126) U/L Troponin I (0.000-0.034) ng/mL Total Protein 7.5 (6.3-8.2) g/dL Albumin 4.3 (3.5-5.0) g/dL Amylase (30-110) U/L Lipase 151 (23-300) U/L 02/24/20 02/24/20 Range/Units 18:03 18:03 WBC (3.8-10.6) k/uL RBC (3.80-5.40) m/uL Hgb (11.4-16.0) gm/dL Hct (34.0-46.0) % MCV (80.0-100.0) fL MCH (25.0-35.0) pg MCHC (31.0-37.0) g/dL RDW (11.5-15.5) % Plt Count (150-450) k/uL Neutrophils % % Lymphocytes % % Monocytes % % Eosinophils % % Basophils % % Neutrophils # (1.3-7.7) k/uL Lymphocytes # (1.0-4.8) k/uL Monocytes # (0-1.0) k/uL Eosinophils # (0-0.7) k/uL Basophils # (0-0.2) k/uL Macrocytosis PT (9.0-12.0) sec INR (<1.2) APTT (22.0-30.0) sec D-Dimer (<0.60) mg/L FEU Sodium (137-145) mmol/L Potassium (3.5-5.1) mmol/L Chloride (98-107) mmol/L Carbon Dioxide (22-30) mmol/L Anion Gap mmol/L BUN (7-17) mg/dL Creatinine (0.52-1.04) mg/dL Est GFR (CKD-EPI)AfAm (>60 ml/min/1.73 sqM) Est GFR (CKD-EPI)NonAf (>60 ml/min/1.73 sqM) Glucose (74-99) mg/dL Calcium (8.4-10.2) mg/dL Magnesium (1.6-2.3) mg/dL Total Bilirubin (0.2-1.3) mg/dL AST (14-36) U/L ALT (4-34) U/L Alkaline Phosphatase (38-126) U/L Troponin I <0.012 (0.000-0.034) ng/mL Total Protein (6.3-8.2) g/dL Albumin (3.5-5.0) g/dL Amylase 56 (30-110) U/L Lipase (23-300) U/L Disposition Clinical Impression: Chest pain Disposition: ADMITTED IP TO THIS [facility] Condition: Stable Is patient prescribed a controlled substance at d/c from ED?: No Referrals: Elva Bernard MD [Primary Care Provider] - 1-2 days Decision to Admit Reason: Admit from EC Decision Date: 02/24/20 Decision Time: 19:57
[2020-02-24 18:10] LABS: Basophils # (A) 0.1 k/uL (0-0.2); Basophils % (A) 1 %; Eosinophils # (A) 0.2 k/uL (0-0.7); Eosinophils % (A) 2 %; HCT 51.1 % (34.0-46.0); HGB 16.4 gm/dL (11.4-16.0); Lymphocytes # (A) 2.2 k/uL (1.0-4.8); Lymphocytes % (A) 23 %; MCH 32.8 pg (25.0-35.0); MCV 102.5 fL (80.0-100.0); Macrocytosis Slight; Mean Platelet Volume 8.1; Monocytes # (A) 0.2 k/uL (0-1.0); Monocytes % (A) 2 %; Neutrophils # (A) 6.9 k/uL (1.3-7.7); Neutrophils % (A) 71 %; Platelet Count 309 k/uL (150-450); RBC 4.98 m/uL (3.80-5.40); RDW 13.3 % (11.5-15.5); WBC 9.8 k/uL (3.8-10.6)
[2020-02-24] MEDS ORDERED: ONDANSETRON 4 MG/2 ML VIAL IVP STA (18:15)
[2020-02-24 18:21] LABS: ALT 27 U/L (4-34); AST 29 U/L (14-36); African American GFR (CKD) >90 (>60 ml/min/1.73 sqM); Albumin 4.3 g/dL (3.5-5.0); Alkaline Phosphatase 67 U/L (38-126); Anion Gap 6 mmol/L; Blood Urea Nitrogen 19 mg/dL (7-17); Calcium 9.8 mg/dL (8.4-10.2); Carbon Dioxide 25 mmol/L (22-30); Chloride 105 mmol/L (98-107); Glucose 105 mg/dL (74-99); Magnesium 1.9 mg/dL (1.6-2.3); Non-African American GFR(CKD) 85 (>60 ml/min/1.73 sqM); Potassium 4.3 mmol/L (3.5-5.1); Sodium 136 mmol/L (137-145); Total Bilirubin 0.6 mg/dL (0.2-1.3); Total Protein 7.5 g/dL (6.3-8.2)
[2020-02-24 18:29] LABS: D-Dimer 0.35 mg/L FEU (<0.60); INR 0.9 (<1.2); Prothrombin Time 9.5 sec (9.0-12.0)
[2020-02-24 18:30] LABS: Partial Thromboplastin Time 22.9 sec (22.0-30.0)
--- NOTE | 2020-02-24 18:41 | XR ---
EXAMINATION TYPE: XR chest 2V DATE OF EXAM: 02/24/2020 COMPARISON: 05/03/2018 HISTORY: Chest pain TECHNIQUE: FINDINGS: Heart and mediastinum are normal. Lungs are clear. Diaphragm is normal. Bony thorax appears normal. IMPRESSION: Normal chest. No change.
[2020-02-24] MEDS ORDERED: hydrALAZINE HCL 20 MG/ML 1 ML VIAL IVP PRN (18:48)
[2020-02-24] MEDS ORDERED: ALPRAZolam 0.25 MG TAB PO PRN (18:48)
[2020-02-24] MEDS ORDERED: HYDROmorphone 0.5 MG/0.5 ML SYRINGE IVP PRN (18:48)
[2020-02-24] MEDS ORDERED: TEMAZEPAM 15 MG CAP PO PRN (18:48)
[2020-02-24] MEDS ORDERED: HYDROcodone/APAP 5-325MG 1 EACH TAB PO PRN (18:48)
--- NOTE | 2020-02-24 19:38 | HP ---
HISTORY AND PHYSICAL DATE OF SERVICE: 02/24/2020 CHIEF COMPLAINTS: Chest pain. HISTORY OF PRESENT ILLNESS: This 64-year-old woman with a past medical history of multiple medical problems including hypertension, history of polymyositis, osteopenia, being followed Dr. Elva Bernard in the outpatient setting was complaining of left-sided chest pain this morning. The pain is nonradiating. The patient had episode of dizziness last evening. Subsequently patient also had some nausea. The patient is feeling like the patient is going to have some diarrhea. The patient admitted to the hospital for further evaluation and treatment. There is no history of fever, rigors or chills. No history of headache, loss of consciousness or seizures. No history of any contact with sick individuals at this time. PAST MEDICAL HISTORY: Hypertension, polymyositis, osteopenia, history of DJD. MEDICATIONS: Prior to admission include home medications are: Diamox 250 mg p.o. daily, vitamin C, zinc, progesterone, multivitamins, metoprolol, Vitamin B12, Ecotrin, Fosamax. ALLERGIES: SULFA. LIPITOR. FAMILY HISTORY: History of myocardial infarction multiple members in the family. SOCIAL HISTORY: No history of smoking. No history of alcohol intake. REVIEW OF SYSTEMS: ENT: No diminished vision. No diminished hearing. CARDIOVASCULAR: As mentioned earlier. Respiration: No cough or hemoptysis. GI no nausea, vomiting. no dysuria. NERVOUS SYSTEM: No numbness or weakness. ALLERGY/IMMUNOLOGY: No asthma or hayfever. MUSCULOSKELETAL: As mentioned earlier. HEMATOLOGY/ONCOLOGY: No history of anemia. ENDOCRINE: No history of diabetes or hypothyroid. CONSTITUTIONAL: As mentioned earlier. DERMATOLOGY: Negative. RHEUMATOLOGY negative. PSYCHIATRY as mentioned. PHYSICAL EXAMINATION: Alert and oriented x3. Pulse is 99. Blood pressure 159/94, respirations 20. Temperature 98.2, pulse ox 97% on 2 L. HEENT: Conjunctivae normal. NECK: No JVD. CARDIOVASCULAR: S1, S2 muffled. RESPIRATORY: Breath sounds diminished in the bases. No rhonchi. No crackles. ABDOMEN: Soft, nontender. No mass palpable. LEGS: No edema. No swelling. NERVOUS SYSTEM: Higher functions as mentioned earlier. Moves all 4 limbs. No focal motor or sensory deficits. LYMPHATICS: No lymph nodes palpable in the neck, axillae or groin. SKIN: No ulcer, no rashes and no bleeding. JOINTS: No active deforming arthropathy. LABS: WBC 9.2, hemoglobin 16.2, sodium 135. ASSESSMENT: 1. Chest pain, possible unstable angina. 2. Hyponatremia. 3. Nausea, possible acute gastritis or gastroenteritis. 4. Elevated hemoglobin. 5. Increased MCV. 6. History of hypertension. 7. Polymyositis. 8. Osteopenia. 9. History of degenerative joint disease. RECOMMENDATIONS AND DISCUSSION: This 64-year-old woman who presented with multiple complex medical issues, we will monitor the patient closely, continue the current medications, management and symptomatic treatment. Recommend rule out myocardial infarction. Unstable angina protocol. Cardiology consultation. Possible stress test. Otherwise, symptomatic treatment for GI symptoms also will be provided. Covid-19 test may be obtained. Prognosis guarded because of multiple complex medical issues. Further recommendations to follow. A copy of dictation being forwarded to Dr. Elva Bernard who is the primary physician. MMFLORECITAL / MARÍA ELENAN: [id number] /
--- NOTE | 2020-02-24 19:42 | CT ---
EXAMINATION TYPE: CT angio thor/abd pel aorta DATE OF EXAM: 02/24/2020 COMPARISON: None HISTORY: Chest pain and hypertensive. CT DLP: 1783.3 mGycm Automated exposure control for dose reduction was used. CONTRAST: Performed without and with IV Contrast, patient injected with 100ml mL of Isovue 370. Images were obtained from the thoracic inlet to the floor the pelvis without and subsequently with IV contrast. There are 3-D post processed images. Lungs are clear of consolidation. There is no evidenc e of a pulmonary mass. There is some bullous emphysema. There is no mediastinal adenopathy. There are no hilar masses. Thoracic aorta has normal size and contour. There is no aneurysm or dissection. There is normal contr ast opacification of the pulmonary arteries. There are no filling defects. Abdominal aorta has normal size. There is patency of the celiac artery and superior mesenteric artery . There is bilateral patency of the renal arteries. There is arterial flow in the iliac and femoral a rteries bilaterally. I see no evidence of arterial stenosis. There is no evidence of aneurysm or diss ection. Liver spleen pancreas appear intact. Bile ducts are not dilated. Stomach is intact. There is no adren al mass. Kidneys show satisfactory contrast opacification. There is no hydronephrosis. Ureters are no t dilated. There is no retroperitoneal adenopathy. Bladder distends smoothly. Uterus is anteverted. T here is fluid level in the rectum. Lumbar and thoracic vertebra have normal alignment. There is anterior wedging of T12 and L1 up to 30% . Fractures are not changed compared to old CT scan of 05/29/2011. There is no mesenteric edema. There is no ascites or free air. There is no bowel obstruction. Uterus is anteverted. There is no evidence of pelvic mass. Appendix is not definitely seen. Bony pelvis is i ntact. IMPRESSION: Negative CT angiogram of the chest abdomen pelvis.
[2020-02-24] MEDS ORDERED: ONDANSETRON 4 MG/2 ML VIAL IVP PRN (19:54)
[2020-02-24] MEDS ORDERED: NALOXONE 0.4 MG/ML 1 ML VIAL IV PRN (19:54)
[2020-02-24] MEDS ORDERED: METOPROLOL SUCCINATE (ER) 50 MG TAB.ER.24H PO SCH (21:00)
[2020-02-24] MEDS: PANTOPRAZOLE 40 MG/10 ML VIAL IVP SCH (21:30)
[2020-02-25 04:44] LABS: Appearance,Urine Clear (Clear); Bilirubin,Urine Negative (Negative); Blood,Urine Negative (Negative); Color,Urine Light Yellow; Glucose,Urine (UA) Negative (Negative); Ketones,Urine Negative (Negative); Leukocyte Esterase,Urine Negative (Negative); Nitrite,Urine Negative (Negative); Protein,Urine Negative (Negative); Urobilinogen,Urine <2.0 mg/dL (<2.0)
[2020-02-25 04:46] LABS: Specific Gravity,Urine >1.050 (1.001-1.035)
[2020-02-25 06:41] LABS: Basophils % (A) 0 %; Eosinophils # (A) 0.2 k/uL (0-0.7); Eosinophils % (A) 2 %; HCT 47.9 % (34.0-46.0); HGB 14.9 gm/dL (11.4-16.0); Lymphocytes # (A) 1.4 k/uL (1.0-4.8); Lymphocytes % (A) 20 %; MCH 32.4 pg (25.0-35.0); MCV 104.2 fL (80.0-100.0); Macrocytosis Slight; Mean Platelet Volume 7.8; Monocytes # (A) 0.4 k/uL (0-1.0); Monocytes % (A) 6 %; Neutrophils # (A) 4.6 k/uL (1.3-7.7); Neutrophils % (A) 69 %; Platelet Count 264 k/uL (150-450); RBC 4.59 m/uL (3.80-5.40); RDW 13.7 % (11.5-15.5); WBC 6.7 k/uL (3.8-10.6)
[2020-02-25 06:50] LABS: Cholesterol 216 mg/dL (<200); HDL Cholesterol 48 mg/dL (40-60); LDL Cholesterol,Calculated 142 mg/dL (0-99); Triglycerides 132 mg/dL (<150)
[2020-02-25 08:07] VITALS: BP 101/62; PULSE 68; RESP 14; TEMP 98
[2020-02-25] MEDS ORDERED: acetaZOLAMIDE 250 MG TAB PO SCH (09:00)
[2020-02-25] MEDS ORDERED: AMINOPHYLLINE 500 MG/20 ML VIAL IV PRN (09:08)
[2020-02-25] MEDS ORDERED: REGADENOSON 0.4 MG/5 ML SYRINGE IV ONE (09:08)
[2020-02-25] MEDS ORDERED: CAFFEINE CITRATE 60 MG/3 ML VIAL IV PRN (09:08)
--- NOTE | 2020-02-25 09:52 | P.CRDCN ---
History of Present Illness Consult date: 02/25/20 History of present illness: CHIEF COMPLAINT: Chest pain HISTORY OF PRESENT ILLNESS: This is a 64-year old female with a past medical history significant for hypertension and family history of heart disease. Patient follows with a chute operator out of [facility]. We have been asked to see the patient in consultation for chest pain. Patient examined this morning at the bedside. Patient states she was working in her garden 2 days ago and was feeling in her normal state of health. She states she woke up the following mo rning with left-sided chest discomfort that she describes as a throbbing sensation. She denies shortness of breath or radiation to the jaw arm or back. She reports some dizziness as well during this time. She states the pain lasted all morning however she attributed to a possible pulled muscle from working in her garden. She then began having nausea which concerned her as she has a family history of heart disease so she decided to come to the emergency room for further evaluation. Patient currently denies chest pain or pressure. Denies dizziness or lightheadedness. She denies nausea. She does report she had some diarrhea when she came to the emergency room and has had a few episodes of diarrhea this morning. Patient underwent a stress echo in May 2018 which was negative for reversible ischemia. DIAGNOSTICS: EKG reveals sinus rhythm without signs of acute ischemia Chest xray negative for acute process Laboratory data: WBC 6.7. Hemoglobin 14.9. Platelet count 264. Sodium 136. Potassium 4.3. BUN 19. Creatinine 0.75. Magnesium 1.9. Troponin negative 3. LDL 142. Current home cardiac medications include metoprolol 50 mg daily, aspirin 81 mg daily, Diamox 250 mg daily REVIEW OF SYSTEMS: At the time of my exam: CONSTITUTIONAL: Denies fever or chills. HEENT: Denies blurred vision, vision changes, or eye pain. Denies hemoptysis CARDIOVASCULAR: Denies chest pain, orthopnea, PND or palpitations RESPIRATORY: No shortness of breath. GASTROINTESTINAL: Denies abdominal pain. Denies nausea or vomiting. HEMATOLOGIC: Denies bleeding disorders. GENITOURINARY: Denies any blood in urine. SKIN: Denies pruitis. Denies rash. PHYSICAL EXAM: VITAL SIGNS: Reviewed. GENERAL: Well-developed in no acute distress. HEENT: Head is normocephalic. Pupils are equal, round. Sclerae anicteric. Mucous membranes of the mouth are moist. Neck supple. No JVD or thyromegaly LUNGS: Respirations even and unlabored. Lungs essentially clear to auscultation bilaterally. HEART: Regular rate and rhythm. S1 and S2 heard. ABDOMEN: Soft. Nondistended. Nontender. EXTREMITIES: Normal range of motion. No clubbing or cyanosis. Peripheral pulses intact. No lower extremity edema NEUROLOGIC: Awake and alert. Oriented x 3. ASSESSMENT: Chest pain, atypical Nausea and diarrhea Hypertension Hyperlipidemia, unable to tolerate statin therapy Family history of heart disease PLAN: Resume home cardiac medications Obtain 2-D echo to assess cardiac structure and function Patient to undergo Lexiscan stress test to assess for reversible ischemia If 2-D echo does not reveal any significant abnormality and patient's stress test is negative, she may be discharged home today from a cardiac standpoint and follow-up with her chute operator in [place] outpatient Nurse practitioner note has been reviewed by physician. Signing provider agrees with the documented findings, assessment, and plan of care. Past Medical History Past Medical History: Hypertension Additional Past Medical History / Comment(s): polymyositis, osteopenia History of Any Multi-Drug Resistant Organisms: None Reported Past Surgical History: Orthopedic Surgery, Tubal Ligation Additional Past Surgical History / Comment(s): BL wrists Past Anesthesia/Blood Transfusion Reactions: No Reported Reaction Past Psychological History: No Psychological Hx Reported Smoking Status: Never smoker Past Alcohol Use History: Occasional Past Drug Use History: None Reported - Past Family History Father Additional Family Medical History / Comment(s): Valve replacement Mother Additional Family Medical History / Comment(s): Triple bypass Sister(s) Family Medical History: Myocardial Infarction ([place]) Additional Family Medical History / Comment(s): [place] caused by spasms Medications and Allergies Home Medications Medication Instructions Recorded Confirmed Type Alendronate Sodium [Fosamax] 70 mg PO WE 05/03/18 02/24/20 History Aspirin EC [Ecotrin Low Dose] 81 mg PO HS 02/24/20 02/24/20 History Cyanocobalamin (Vitamin B-12) 1,000 mcg PO DAILY 02/24/20 02/24/20 History [Vitamin B-12] Metoprolol Succinate (ER) [Toprol 50 mg PO HS 02/24/20 02/24/20 History Xl] Multivitamins, Thera Liquid 5 ml PO DAILY 02/24/20 02/24/20 History [Theragran Liquid (formulary)] Progesterone, Micronized 200 mg PO HS 02/24/20 02/24/20 History [Progesterone] Vitamin C/Zinc Odt Tab 1 tab SL DAILY 02/24/20 02/24/20 History acetaZOLAMIDE [Diamox] 250 mg PO DAILY 02/24/20 02/24/20 History Allergies Allergy/AdvReac Type Severity Reaction Status Date / Time Sulfa (Sulfonamide Allergy Rash/Hives Verified 02/24/20 18:31 Antibiotics) atorvastatin [From Lipitor] AdvReac MUSCLE PAIN Verified 02/24/20 18:31 Physical Exam Vitals: Vital Signs Temp Pulse Pulse Resp BP BP Pulse Ox 02/25/20 08:06 98.0 F 68 14 101/62 96 02/25/20 04:15 97.9 F 78 16 109/70 97 02/24/20 20:40 97.9 F 88 16 118/66 96 02/24/20 20:00 98.0 F 94 16 158/90 98 02/24/20 18:31 99 20 159/94 96 02/24/20 17:45 98 02/24/20 17:33 98.3 F 90 18 173/101 97 Intake and Output 02/24/20 02/25/20 02/25/20 22:59 06:59 14:59 Other: Voiding Method Toilet Toilet Toilet # Voids 1 1 # Bowel Movements 1 1 Weight 86.183 kg Results 02/25/20 06:30 02/24/20 18:03 Cardiac Enzymes 02/24/20 02/24/20 02/24/20 Range/Units 18:03 18:03 20:48 AST 29 (14-36) U/L Troponin I <0.012 <0.012 (0.000-0.034) ng/mL 02/24/20 Range/Units 23:59 AST (14-36) U/L Troponin I <0.012 (0.000-0.034) ng/mL Coagulation 02/24/20 Range/Units 18:03 PT 9.5 (9.0-12.0) sec APTT 22.9 (22.0-30.0) sec Lipids 02/25/20 Range/Units 06:29 Triglycerides 132 (<150) mg/dL Cholesterol 216 H (<200) mg/dL HDL Cholesterol 48 (40-60) mg/dL CBC 02/24/20 02/25/20 Range/Units 18:03 06:30 WBC 9.8 6.7 (3.8-10.6) k/uL RBC 4.98 4.59 (3.80-5.40) m/uL Hgb 16.4 H 14.9 (11.4-16.0) gm/dL Hct 51.1 H 47.9 H (34.0-46.0) % Plt Count 309 264 (150-450) k/uL Comprehensive Metabolic Panel 02/24/20 Range/Units 18:03 Sodium 136 L (137-145) mmol/L Potassium 4.3 (3.5-5.1) mmol/L Chloride 105 (98-107) mmol/L Carbon Dioxide 25 (22-30) mmol/L BUN 19 H (7-17) mg/dL Creatinine 0.75 (0.52-1.04) mg/dL Glucose 105 H (74-99) mg/dL Calcium 9.8 (8.4-10.2) mg/dL AST 29 (14-36) U/L ALT 27 (4-34) U/L Alkaline Phosphatase 67 (38-126) U/L Total Protein 7.5 (6.3-8.2) g/dL Albumin 4.3 (3.5-5.0) g/dL Current Medications Generic Name Dose Route Start Last Admin Trade Name Freq PRN Reason Stop Dose Admin Hydrocodone Bitart/Acetaminophen 1 each 02/24/20 18:48 Hydrocodone/Apap 5-325mg 1 Each Tab PO Q6HR PRN Pain Acetazolamide 250 mg 02/25/20 09:00 Acetazolamide 250 Mg Tab PO DAILY TORSTEN Alprazolam 0.25 mg 02/24/20 18:48 Alprazolam 0.25 Mg Tab PO TID PRN Anxiety Aminophylline 100 mg 02/25/20 09:08 Aminophylline 500 Mg/20 Ml Vial IV 02/25/20 23:59 ONCE PRN Patient Response Caffeine Citrate 60 mg 02/25/20 09:08 Caffeine Citrate 60 Mg/3 Ml Vial IV 02/25/20 23:59 ONCE PRN Patient Response Hydralazine HCl 10 mg 02/24/20 18:48 Hydralazine Hcl 20 Mg/Ml 1 Ml Vial IVP Q4HR PRN Blood Pressure - High Hydromorphone HCl 0.5 mg 02/24/20 18:48 Hydromorphone 0.5 Mg/0.5 Ml Syringe IVP Q6HR PRN Severe Pain Metoprolol Succinate 50 mg 02/24/20 21:00 02/24/20 21:30 Metoprolol Succinate (Er) 50 Mg Tab.Er.24h PO 50 mg HS TORSTEN Administration Naloxone HCl 0.2 mg 02/24/20 19:54 Naloxone 0.4 Mg/Ml 1 Ml Vial IV Q2M PRN Opioid Reversal Ondansetron HCl 4 mg 02/24/20 19:54 Ondansetron 4 Mg/2 Ml Vial IVP Q8HR PRN Nausea And Vomiting Pantoprazole Sodium 40 mg 02/24/20 21:00 02/24/20 21:30 Pantoprazole 40 Mg/10 Ml Vial IVP 40 mg BID TORSTEN Administration Temazepam 15 mg 02/24/20 18:48 Temazepam 15 Mg Cap PO HS PRN Insomnia Intake and Output 02/24/20 02/25/20 02/25/20 22:59 06:59 14:59 Other: Voiding Method Toilet Toilet Toilet # Voids 1 1 # Bowel Movements 1 1 Weight 86.183 kg 02/25/20 06:30 02/24/20 18:03
--- NOTE | 2020-02-25 11:33 | ECHOF ---
Referral Reason:chest pain MEASUREMENTS -------- HEIGHT: 157.5 cm WEIGHT: 86.2 kg BP: RVIDd: 2.1 cm (< 3.3) IVSd: 0.8 cm (0.6 - 1.1) LVIDd: 4.4 cm (3.9 - 5.3) LVPWd: 0.9 cm (0.6 - 1.1) IVSs: 1.4 cm LVIDs: 2.2 cm LVPWs: 1.6 cm LAESV Index (A-L): 19.85 ml/m Ao Diam: 2.3 cm (2.0 - 3.7) LA Diam: 3.5 cm (2.7 - 3.8) MV EXCURSION: 15.618 mm (> 18.000) MV EF SLOPE: 30 mm/s (70 - 150) EPSS: 0.4 cm MV E Gage: 1.27 m/s MV DecT: 237 ms MV A Gage: 0.98 m/s MV E/A Ratio: 1.30 RAP: 5.00 mmHg RVSP: 10.49 mmHg FINDINGS -------- This was a technically adequate study. The left ventricular size is normal. Left ventricular wall thickness is normal. Overall left vent ricular systolic function is normal with, an EF between 55 - 60 %. Normal LAP Grade 1 Diastolic Dys function. The right ventricle is normal in size. The left atrial size is normal. Normal LA size by volume 22+/-6 ml/m2. The right atrial size is normal. The aortic valve is trileaflet and appears structurally normal. The mitral valve is normal. There is trace mitral regurgitation. The tricuspid valve appears structurally normal. Trace tricuspid regurgitation present. Right wagner tricular systolic pressure is normal at < 35 mmHg. There is no pulmonic regurgitation present. The aortic root size is normal. Normal inferior vena cava with normal inspiratory collapse consistent with estimated right atrial pre ssure of 5 mmHg. There is no pericardial effusion. CONCLUSIONS -------- 1. The left ventricular size is normal. 2. Left ventricular wall thickness is normal. 3. Overall left ventricular systolic function is normal with, an EF between 55 - 60 %. 4. Normal LAP Grade 1 Diastolic Dysfunction. 5. There is trace mitral regurgitation. 6. Trace tricuspid regurgitation present. 7. There is no pericardial effusion. [employer]: Marta Watson RDCS
--- NOTE | 2020-02-25 11:36 | P.STRESS ---
- Stress Test Note Stress Test Results/Findings: Exam Performed: NM stress lexiscan cardiolite Exam Date: 02/25/20 Reason for Exam: CHEST PAIN Height: 5 ft 2 in Weight: 86.18 kg Protocol: LEXISCAN Stage: N/A Duration of Exercise: 6 MINUTES Resting Heart Rate: 64 Resting Blood Pressure: 147/62 Maximum Achieved Heart Rate: 91 Maximum Achieved Blood Pressure: 182/56 85% PMHR: 133 100% PMHR: 157 METS: N/A Technologist Comment: Stress Test Results/Findings: This is a 64-year-old female with history of hypertension, family history of ischemic or disease being evaluated symptoms of chest pain. Stress data: Baseline EKG showed sinus rhythm with normal LA interval, QRS duration. Blood pressure at rest is 147/62 with pulse rate of 64. A standard dose of Lexiscan was infused EKGs taken during and after the infusion did not reveal any significant changes from baseline. Final impression: #1. Negative Lexiscan stress test. #2. The report on the nuclear images to be provided by the radiologist
[2020-02-25] MEDS: PANTOPRAZOLE 40 MG/10 ML VIAL IVP SCH (12:13)
--- NOTE | 2020-02-25 13:33 | EST ---
Stress Test Results/Findings: Exam Performed: NM stress lexiscan cardiolite Exam Date: 02/25/20 Reason for Exam: CHEST PAIN Height: 5 ft 2 in Weight: 86.18 kg Protocol: LEXISCAN Stage: N/A Duration of Exercise: 6 MINUTES Resting Heart Rate: 64 Resting Blood Pressure: 147/62 Maximum Achieved Heart Rate: 91 Maximum Achieved Blood Pressure: 182/56 85% PMHR: 133 100% PMHR: 157 METS: N/A Technologist Comment: Stress Test Results/Findings: This is a 64-year-old female with history of hypertension, family history of ischemic or disease being evaluated symptoms of chest pain. Stress data: Baseline EKG showed sinus rhythm with normal DE interval, QRS duration. Blood pressure at rest is 147/62 with pulse rate of 64. A standard dose of Lexiscan was infused EKGs taken during and after the infusion did not reveal any significant changes from baseline. Final impression: #1. Negative Lexiscan stress test. #2. The report on the nuclear images to be provided by the radiologist BRIANNA
--- NOTE | 2020-02-25 13:56 | NM ---
EXAMINATION TYPE: NM stress lexiscan cardiolite DATE OF EXAM: 02/25/2020 COMPARISON: NONE HISTORY: Chest pain TECHNIQUE: After the intravenous administration of 10.2 mCi Tc 99m Sestamibi - Cardiolite resting SP ECT images acquired 45 minutes post injection. The patient received 0.4mg Lexiscan, 24.8 mCi Tc 99m Sestamibi - Stress images obtained [address] injection FINDINGS: Review of stress and rest SPECT images demonstrates no distinct perfusion abnormality. Gated analysi s shows normal wall motion with an estimated left ventricular ejection fraction of 55 %. IMPRESSION: No scintigraphic evidence for reversible ischemia.
--- NOTE | 2020-02-26 06:22 | P.DS ---
Providers Date of admission: 02/24/20 19:55 Attending physician: Yakov Richard Consults: 02/24/20 18:49 Consult Physician Routine Consulting Provider: Mellisa Patten Consult Reason/Comments: chest pain Do you want consulting provider notified?: Yes Primary care physician: Elva Bernard Hospital Course: Diagnoses: Chest pain, rule out cardiac causes cardiac causes ruled out. CT of the chest: No evidence of filling defect Possible mild viral gastroenteritis Hypertension History of polymyositis Osteopenia Degenerative joint disease Obesity with BMI of 34.8 Hospital course: This is a pleasant 64 years old female with multiple medical problems as above. Presents because of chest pain and some dizziness and nausea which is all of them resolved now, also patient has some mild diarrhea about 3 times per day between yesterday and today. No abdominal pain or nausea vomiting and she is tolerating that well. No fever. Patient is been evaluated by safety investigator/cause analyst and she underwent Stress test: was negative for reversible ischemia CT angiogram of the thorax/abdomen and pelvis aorta: Negative for chest, abdomen and pelvis. No aortic aneurysm or dissection, normal contrast opacification of the pulmonary arteries with no filling defects Patient's symptoms significantly improved other than some mild area, she denies any other symptoms. No abdominal pain or nausea vomiting. No chest pain or dyspnea. No fever. No genitourinary symptoms. No other GI symptoms. Patient was eager to go home and she thinks she can manage it. The patient was instructed about the symptoms get worse then to call 911 on come to emergency room including but not limited to worsening abdominal pain, nausea vomiting, fever, blood in the stool, worsening diarrhea, chest pain or dyspnea, or any other signs or symptoms Patient was cleared for discharge by cardiology team Problems and management plan were discussed with the patient and he verbalized understanding and acceptance Patient was found stable and can be discharged home however he needs follow-up as an outpatient. Patient was instructed to follow up with PCP Dr. Bernard within one week and patient agrees. Also patient was instructed to follow up with her safety investigator/cause analyst Dr. Brice into 1-2 weeks and she agrees to call and make appointments, patient states she has to contact information Gen: patient is a AAOx3, no distress CVS: S1-S2, RRR, no murmur Lungs: B/L CTA, no wheezing Abdomen: soft, no distention, no tenderness, positive bowel sounds Extremity: no leg edema or induration Time spent more than 35 minutes Patient Condition at Discharge: Stable Plan - Discharge Summary Discharge Rx Participant: No New Discharge Prescriptions: Continue Alendronate Sodium [Fosamax] 70 mg PO WE Progesterone, Micronized [Progesterone] 200 mg PO HS Multivitamins, Thera Liquid [Theragran Liquid (formulary)] 5 ml PO DAILY Metoprolol Succinate (ER) [Toprol XL] 50 mg PO HS Aspirin EC [Ecotrin Low Dose] 81 mg PO HS acetaZOLAMIDE [Diamox] 250 mg PO DAILY Vitamin C/Zinc Odt Tab 1 tab SL DAILY Cyanocobalamin (Vitamin B-12) [Vitamin B-12] 1,000 mcg PO DAILY Discharge Medication List Alendronate Sodium [Fosamax] 70 mg PO WE 05/03/18 [History] Aspirin EC [Ecotrin Low Dose] 81 mg PO HS 02/24/20 [History] Cyanocobalamin (Vitamin B-12) [Vitamin B-12] 1,000 mcg PO DAILY 02/24/20 [History] Metoprolol Succinate (ER) [Toprol XL] 50 mg PO HS 02/24/20 [History] Multivitamins, Thera Liquid [Theragran Liquid (formulary)] 5 ml PO DAILY 02/24/20 [History] Progesterone, Micronized [Progesterone] 200 mg PO HS 02/24/20 [History] Vitamin C/Zinc Odt Tab 1 tab SL DAILY 02/24/20 [History] acetaZOLAMIDE [Diamox] 250 mg PO DAILY 02/24/20 [History] Follow up Appointment(s)/Referral(s): Elva Bernard MD [Primary Care Provider] - 1-2 days Patient Instructions/Handouts: Chest Pain (GEN) Activity/Diet/Wound Care/Special Instructions: Heart healthy diet Activities are restricted until you see your doctor Discharge Disposition: HOME SELF-CARE
== END 2020-02-25 14:31 | disposition home or self-care (01) ==
LOC: EC 17:32 → 3NCARDOBS 19:55
PROVIDERS: ADMIT Hospitalist; ATTEND Hospitalist
DX: R07.89 Other chest pain (principal); E66.9 Obesity, unspecified; R42 Dizziness and giddiness; R19.7 Diarrhea, unspecified; R11.0 Nausea; E78.5 Hyperlipidemia, unspecified; E87.1 Hypo-osmolality and hyponatremia; I10 Essential (primary) hypertension; M19.90 Unspecified osteoarthritis, unspecified site; M33.20 Polymyositis, organ involvement unspecified; M85.80 Other specified disorders of bone density and structure, unspecified site; R56.9 Unspecified convulsions; Z68.34 Body mass index [BMI] 34.0-34.9, adult; Z79.83 Long term (current) use of bisphosphonates; Z79.899 Other long term (current) drug therapy; Z82.49 Family history of ischemic heart disease and other diseases of the circulatory system
CPT/HCPCS: 93005 ×2; 96375; 96376; 96361; 96374; 99285; 36415; 93017; 93306; 85379; 80061; 80053; 82150; 83690; 83735; 84484; 85025 ×2; 85610; 85730; 81003; 71046; 71275; 74174; 78452; G0378 ×3; A9500; J2405; J2785; C9113 ×2; Q9967